=== PATIENT | male | born 1955 | race Caucasian/White ===

== ENCOUNTER → 2019-05-03 | Day surgery (SDC) | payer OTHER ==
[~2019-05-03] MED LIST: Lactated Ringers 1,000 ML IV SCH; Propofol 200 MG/20 ML SDV IV ONE
[2019-05-03 12:58] VITALS: BP 120/74
--- NOTE | 2019-05-03 14:40 | OR ---
DATE OF OPERATION: 05/03/2019 PREOPERATIVE DIAGNOSIS: 1. EPIGASTRIC PAIN. 2. ALTERED BOWEL HABITS. POSTOPERATIVE DIAGNOSIS: 1. EPIGASTRIC PAIN. 2. ALTERED BOWEL HABITS. SURGEON: Jose A Koch MD PROCEDURE: 1. ESOPHAGOGASTRODUODENOSCOPY WITH BIOPSY X1, KRISTIE. 2. FULL-LENGTH COLONOSCOPY WITH BIOPSY X1. ANESTHESIA: MAC. COMPLICATIONS: None. SPECIMEN: 1. Fundal biopsy x1. 2. Fundal KRISTIE. 3. Biopsy x1, hepatic flexure. FINDINGS: 1. Full-length EGD. 2. Status post Shirley-en-Y bypass. 3. Mild- to moderate-sized hiatal hernia without esophagitis, stricturing, or Berkowitz's changes. 4. Minimal gastritis near the anastomosis site. 5. Full-length colonoscopy. 6. Marginal prep. 7. Small lipoma, hepatic flexure. RECOMMENDATIONS: Routine colonoscopy per ACS guidelines. The patient has been put on a proton pump inhibitor for his reflux and epigastric pain, and he has had a wonderful result. We will continue that for now. INDICATIONS: The patient presented to my office with complaints of epigastric pain and occasional altered bowel habits. He has a history of a gastric bypass. We elected to proceed with both upper and lower endoscopy. DESCRIPTION OF PROCEDURE: The patient was prepped and draped, placed in the left lateral decubitus position. A lubricated Olympus gastroscope was inserted over a bit, advanced to cricopharyngeus area, and easily intubated into the esophagus. The esophageal lining was benign in its entire course. The Z-line was sharp around 37 cm. There was a mild to even maybe moderate-sized hiatal hernia present with spontaneous GERD. No distal esophagitis, stricturing, ulceration, or Berkowitz's changes. The scope was passed into the stomach which has been shortened due to his bypass. The anastomosis looks excellent as does the jejunum. Just on the stomach side of the anastomosis, there was a small amount of gastritis. No ulcerations. I did do a biopsy. CLOtest was obtained as well. No other lesions or masses were seen. No signs of any other peptic ulcer disease. Air was suctioned from the stomach and the scope was removed without problem. A lubricated Olympus colonoscope was then inserted and easily advanced to the cecum. We were able to directly visualize the ileocecal valve, palpate and visualize the light in the right lower quadrant. The bowel prep was marginal. There was a lot of stool throughout. We were able to irrigate some of the thicker areas, but certainly smaller lesions may have been missed. Upon withdrawal, cecum and ascending colon appeared benign. Right at the hepatic flexure, there appeared to be a small submucosal lipoma. Did do a biopsy for confirmation. The rest of the transverse was remarkable, although the bowel prep was poor there. In the left colon, I found no signs of any polyps, mass, ulceration, or bleeding sites. No obvious vascular abnormalities or signs of colitis. There were no significant diverticula. The rectal vault was benign. Retroflexion of the scope in the rectum showed no anal lesions. The patient does have significant hemorrhoidal tissue in most of the rectal vault. Air was then suctioned and scope removed without complication. SUSHMA/DEBBY /[id number]
== END ==
LOC: CC.SDS 10:23
PROVIDERS: ATTEND Family Medicine
DX: K29.50 Unspecified chronic gastritis without bleeding (principal); R19.4 Change in bowel habit; K44.9 Diaphragmatic hernia without obstruction or gangrene; K21.9 Gastro-esophageal reflux disease without esophagitis; K63.89 Other specified diseases of intestine; K64.9 Unspecified hemorrhoids; D50.9 Iron deficiency anemia, unspecified; G62.9 Polyneuropathy, unspecified; Z88.1 Allergy status to other antibiotic agents; Z88.0 Allergy status to penicillin; Z98.84 Bariatric surgery status
CPT/HCPCS: 87081; J2704; J7120

== ENCOUNTER 2021-01-17 07:41 | Emergency (ER) | payer OTHER ==
[2021-01-17 08:06] LABS: CHLORIDE,CL 102 mEq/L (98-106); SODIUM,NA 138 mEq/L (136-145)
--- NOTE | 2021-01-17 08:09 | EDM.PDOC ---
ED HPI GENERAL MEDICAL PROBLEM - General Chief Complaint: General Stated Complaint: and pain Time Seen by Provider: 01/17/21 07:55 Source of Information: Reports: Patient History Limitations: Reports: No Limitations - History of Present Illness INITIAL COMMENTS - FREE TEXT/NARRATIVE: Senthil is a 65 year old male who presents to ER with complaints of abdominal pain and bloating. States ate burmese steak for supper last night and started having pain approximately one hour after. Has had trouble eating meat since his gastric bypass years ago. Often will be able to get it to pass or correct the issue by drinking lots of fluids but that has not helped with this bout. He feels distended. Has had nausea and dry heaves. Low grade fever this am. Has had watery stools but relates seems similar to when he has had blockages in the past. Has had several abdominal surgeries after his bypass, last was over 12 years ago. Onset: Gradual Duration: Hour(s):, Getting Worse Location: Reports: Abdomen Quality: Reports: Ache, Sharp Severity: Severe Associated Symptoms: Reports: Fever/Chills, Nausea/Vomiting. Denies: Confusion, Chest Pain, Cough, Loss of Appetite, Shortness of Breath Abdominal Pain Score (Numeric/FACES): 7 - Related Data Allergies Allergy/AdvReac Type Severity Reaction Status Date / Time vancomycin Allergy Rash Verified 01/17/21 07:45 amoxil Allergy Rash Uncoded 01/17/21 07:45 dilaudid Allergy Cannot Uncoded 01/17/21 07:45 Remember Home Meds: Home Meds . [No Known Home Meds] 02/08/17 [History] Past Medical History - Past Surgical History GI Surgical History: Reports: Appendectomy, Cholecystectomy, Other (See Below) Other GI Surgeries/Procedures: gastric bypass Musculoskeletal Surgical History: Reports: Other (See Below) Other Musculoskeletal Surgeries/Procedures:: fx leg Social & Family History - Family History Family Medical History: No Pertinent Family History - Tobacco Use Tobacco Use Status *Q: Never Tobacco User Second Hand Smoke Exposure: No ED ROS GENERAL - Review of Systems Review Of Systems: See Below Constitutional: Reports: Fever, Chills, Malaise HEENT: Reports: No Symptoms Respiratory: Denies: Shortness of Breath, Cough Cardiovascular: Denies: Chest Pain, Edema, Lightheadedness Endocrine: Denies: Fatigue GI/Abdominal: Reports: Abdominal Pain, Diarrhea, Nausea, Vomiting : Reports: No Symptoms Musculoskeletal: Reports: No Symptoms Skin: Reports: No Symptoms Neurological: Reports: No Symptoms ED EXAM, GENERAL - Physical Exam Exam: See Below Exam Limited By: No Limitations General Appearance: Alert, WD/WN, Mild Distress Ears: Normal External Exam, Normal TMs Nose: Normal Inspection, Normal Mucosa, No Blood Throat/Mouth: Normal Inspection, Normal Oropharynx Head: Normocephalic Neck: Normal Inspection, Supple, Non-Tender Respiratory/Chest: No Respiratory Distress, Lungs Clear, Normal Breath Sounds Cardiovascular: Regular Rate, Rhythm GI/Abdominal: Distended, Guarding, Tender, Abnormal Bowel Sounds Extremities: Normal Inspection, No Pedal Edema Neurological: Alert, Oriented Skin Exam: Warm, Dry Course - Vital Signs Last Recorded V/S: Last Vital Signs Temp 99.6 F 01/17/21 08:53 Pulse 95 01/17/21 08:53 Resp 18 01/17/21 08:53 BP 117/74 01/17/21 08:53 Pulse Ox 95 01/17/21 08:53 - Orders/Labs/Meds Orders: Active Orders 24 hr Category Date Time Status Abdomen Pelvis w Cont [CT] Stat Exams 01/17/21 08:10 Taken UA RFX CARLOS AND CULT IF INDIC [URIN] Stat Lab 01/17/21 07:42 Ordered Labs: Laboratory Tests 01/17/21 01/17/21 Range/Units 07:42 07:42 WBC 16.9 H (5.0-10.0) 10^3/uL RBC 5.43 (4.50-6.00) 10^6/uL Hgb 16.2 (14.0-18.0) g/dL Hct 46.7 (40.0-54.0) % MCV 86.0 (82.0-94.0) fL MCH 29.8 (27.0-32.0) pg MCHC 34.7 (33.0-38.0) g/dL RDW Coeff of Korina 14.6 (11.0-15.0) % Plt Count 222 (150-400) 10^3/uL Neut % (Auto) 95.9 H (35-85) % Lymph % (Auto) 1.1 L (10-55) % [place] % (Auto) 2.8 (0-16) % Eos % (Auto) 0.1 (0-5) % Baso % (Auto) 0.1 (0-3) % Neut # (Auto) 16.16 H (1.80-7.00) 10^3/uL Lymph # (Auto) 0.19 L (1.00-4.80) 10^3/uL [place] # (Auto) 0.48 (0.00-0.80) 10^3/uL Eos # (Auto) 0.01 (0.00-0.45) 10^3/uL Baso # (Auto) 0.01 10^3/uL Sodium 138 (136-145) mEq/L Potassium 4.2 (3.5-5.0) mEq/L Chloride 102 (98-106) mEq/L Carbon Dioxide 21 (21-32) mmol/L BUN 14 (7-18) mg/dL Creatinine 1.3 (0.7-1.3) mg/dL Est Cr Clr Drug Dosing TNP Estimated GFR (MDRD) 56 L (>=60) mL/min Glucose 157 H D (75-99) mg/dL Calcium 8.7 (8.4-10.1) mg/dL Total Bilirubin 1.2 H (0.0-1.0) mg/dL AST 24 (15-37) U/L ALT 27 (12-78) U/L Alkaline Phosphatase 94 (46-116) U/L C-Reactive Protein 3.1 H (0.2-0.8) mg/dL Total Protein 7.5 (6.4-8.2) g/dL Albumin 3.7 (3.4-5.0) g/dL Amylase 29 (25-115) U/L Lipase 49 L (73-393) U/L Meds: Medications Discontinued Medications Generic Name Dose Route Start Last Admin Trade Name Freq PRN Reason Stop Dose Admin Fentanyl 50 mcg 01/17/21 08:46 01/17/21 08:49 Fentanyl 50 Mcg/Ml Sdv IVPUSH 01/17/21 08:47 50 mcg ONETIME ONE Administration Iopamidol 100 ml 01/17/21 08:33 01/17/21 08:41 Iopamidol 755 Mg/Ml 100 Ml Bottle IVPUSH 01/17/21 08:34 100 ml ONETIME ONE Administration Ondansetron HCl 2 packet 01/17/21 09:32 Take Home: Ondansetron 4 Mg Tab.Dis, 2 Tab Pack PO 01/17/21 09:33 ONETIME ONE - Re-Assessments/Exams Free Text/Narrative Re-Assessment/Exam: 01/17/21 09:20 CT scan report received. Noted mild ileus and evidence of gastroenteritis. Discussed with patient. Is feeling well from Fentanyl. Does feel can manage at home, keep diet bland. Push fluids. Zofran for nausea. Departure - Departure Time of Disposition: 09:32 Disposition: Home, Self-Care 01 Condition: Fair Clinical Impression: Gastroenteritis - Discharge Information *PRESCRIPTION DRUG MONITORING PROGRAM REVIEWED*: No *COPY OF PRESCRIPTION DRUG MONITORING REPORT IN PATIENT DEMARCUS: No Instructions: Food Choices to Help Relieve Diarrhea, Adult Referrals: PCP,None [Primary Care Provider] - Forms: ED Department Discharge Additional Instructions: 1. Push fluids 2. [place] diet 3. Zofran 4 mg ODT every 6 hours as needed for nausea/vomiting 4. Follow up if any persisting concerns, fever worsens, more pain, etc. Sepsis Event Note (ED) - Focused Exam Vital Signs: Vital Signs Temp Pulse Resp BP Pulse Ox 01/17/21 08:53 99.6 F 95 18 117/74 95 01/17/21 08:03 100.5 F 104 H 18 147/95 H 96 - My Orders Last 24 Hours: My Active Orders 01/17/21 07:42 UA RFX CARLOS AND CULT IF INDIC [URIN] Stat 01/17/21 08:10 Abdomen Pelvis w Cont [CT] Stat - Assessment/Plan Last 24 Hours: My Active Orders 01/17/21 07:42 UA RFX CARLOS AND CULT IF INDIC [URIN] Stat 01/17/21 08:10 Abdomen Pelvis w Cont [CT] Stat
[2021-01-17] MEDS ORDERED: Iopamidol 755 Mg/ML 100 ML Bottle IVPUSH ONE (08:33)
[2021-01-17] MEDS ORDERED: fentaNYL 50 MCG/ML SDV IVPUSH ONE (08:46)
[2021-01-17 08:54] VITALS: BP 117/74; PULSE 95
[2021-01-17] MEDS ORDERED: Take Home: Ondansetron 4 MG Tab.DIS, 2 Tab Pack PO ONE (09:32)
[2021-01-17] MEDS ORDERED: Take Home: Acetaminophen/HYDROcodone 325-5 MG, 2 Tab Pack PO ONE (19:45)
== END 2021-01-17 09:54 | disposition home or self-care (01) ==
LOC: CC.ED 07:41
DX: K52.9 Noninfective gastroenteritis and colitis, unspecified (principal); Z88.1 Allergy status to other antibiotic agents; Z88.5 Allergy status to narcotic agent
CPT/HCPCS: 36415; 74177; 80053; 81003; 82150; 83690; 85025; 86140; 96374; 99284-25; A9270-GY; J3010; Q9967

== ENCOUNTER → 2021-07-01 | Day surgery (SDC) | payer OTHER ==
[~2021-07-01] MED LIST changes: -Propofol 200 MG/20 ML SDV IV ONE; +Propofol 200 MG/20 ML SDV ONE; +fentaNYL 100 MCG/2 ML SDV ONE
[2021-07-01 15:15] VITALS: BP 130/75; PULSE 64
--- NOTE | 2021-07-14 21:37 | OR ---
DATE OF OPERATION: 07/01/2021 PREOPERATIVE DIAGNOSIS: ABDOMINAL PAIN. POSTOPERATIVE DIAGNOSIS: ABDOMINAL PAIN. SURGEON: Roosevelt Reno MD PROCEDURE: ESOPHAGOGASTRODUODENOSCOPY WITH PHOTOGRAPHS. ANESTHESIA: MAC. SPECIMEN: None. FINDINGS: Gastric restrictive band erosion into the prior gastric pouch after gastric bypass and large, 50% circumferential marginal ulcer. INDICATIONS: This 66-year-old male has an epigastric abdominal pain. It does radiate into the back. Of note, he had an open gastric bypass procedure 20 years ago and at that time, he had a restrictive silastic ring band placed around the gastrojejunostomy anastomosis. He is not on any proton pump inhibitors. He does have some anemia. RECOMMENDATIONS: Band removal and aggressive ulcer management with proton pump inhibitors. DESCRIPTION OF PROCEDURE: After adequate preparation, a gastroscope was inserted into the esophagus. This was passed down to the distal esophagus. Examination does not show any evidence of esophageal abnormalities. He has no strictures, masses, or evidence of reflux esophagitis. The scope was advanced into the gastric pouch and visibly is the restrictive band, at least 50% of the band is within the gastric pouch. At the gastrojejunostomy, has a very large, deep, ulcerated base ulcer consistent with a marginal ulceration of anastomosis. The scope was advanced through this down into the Y limb of the jejunum, which is normal. On withdrawal of the scope, photographs of this were taken. The scope was removed and the patient was taken to recovery room. VIOLETA/DEBBY /[id number]
== END ==
LOC: CC.SDS 11:47
PROVIDERS: ATTEND Surgery
DX: K28.9 Gastrojejunal ulcer, unspecified as acute or chronic, without hemorrhage or perforation (principal); R10.13 Epigastric pain; I10 Essential (primary) hypertension; K21.9 Gastro-esophageal reflux disease without esophagitis; D50.9 Iron deficiency anemia, unspecified; G62.9 Polyneuropathy, unspecified; Z88.8 Allergy status to other drugs, medicaments and biological substances; Z88.1 Allergy status to other antibiotic agents; Z79.899 Other long term (current) drug therapy; Z98.84 Bariatric surgery status; Z90.49 Acquired absence of other specified parts of digestive tract; Z98.890 Other specified postprocedural states
CPT/HCPCS: 43235; J2704; J3010; J7120

== ENCOUNTER → 2021-08-05 | Day surgery (SDC) | payer OTHER ==
[~2021-08-05] MED LIST changes: -fentaNYL 100 MCG/2 ML SDV ONE
--- NOTE | 2021-08-05 10:00 | OR ---
DATE OF OPERATION: 08/05/2021 PREOPERATIVE DIAGNOSIS: MARGINAL ULCER AND BAND EROSION FROM VERTICAL BANDED GASTROPLASTY. POSTOPERATIVE DIAGNOSIS: MARGINAL ULCER AND BAND EROSION FROM VERTICAL BANDED GASTROPLASTY. SURGEON: Roosevelt Reno MD PROCEDURE: ESOPHAGOGASTRODUODENOSCOPY WITH ATTEMPTED BAND REMOVAL. ANESTHESIA: MAC. SPECIMEN: None. INDICATIONS: This 66-year-old male has had a vertical banded gastroplasty and has a significant abdominal pain. EGD a month ago showed a large marginal ulcer and erosion of the gastroplasty band (not lap band) into the lumen of the gastric pouch. He was placed on Protonix and he is here for followup EGD. DESCRIPTION OF PROCEDURE: After adequate preparation, a gastroscope was inserted into the esophagus. This was passed down to the distal esophagus. Examination of the pouch did show the band to be in place. However, examination for the large ulcer, it is actually almost completely healed. There is only a small little remnant of the ulcer left. This really amazingly has healed up well. A hot biopsy forceps was used to grab the band and then an attempt was made to cauterize through the band. I had assumed this was a silastic band which is the normal one they use. However, this seems to be made out of mesh and will not cauterize. He does not have any symptoms currently. I think most of his preoperative symptoms were due to the ulcer and not the band. For the present time, would just simply leave the band in place. It is not causing any problems. The scope was removed. The patient was taken to recovery room. VIOLETA/DEBBY /[id number]
[2021-08-05 10:15] VITALS: BP 103/67; PULSE 73
== END ==
LOC: CC.SDS 08:20
PROVIDERS: ATTEND Surgery
DX: K95.09 Other complications of gastric band procedure (principal); K28.9 Gastrojejunal ulcer, unspecified as acute or chronic, without hemorrhage or perforation; K21.9 Gastro-esophageal reflux disease without esophagitis; G62.9 Polyneuropathy, unspecified; I10 Essential (primary) hypertension; Z88.8 Allergy status to other drugs, medicaments and biological substances; Z79.899 Other long term (current) drug therapy; Z98.890 Other specified postprocedural states
CPT/HCPCS: 00731; J2704; J7120